=== PATIENT | male | born 1945 | race Caucasian/White ===

== ENCOUNTER 2023-04-30 08:07 | Inpatient (IN) | payer OTHER ==
[2023-04-30 08:43] LABS: HEMOGLOBIN 12.2 G/dL (11.7-16.9); MCH 30.2 pg (25.7-33.7); MCHC 34.9 g/dl (32.0-35.9); MEAN CELL VOLUME 86.7 fl (80-96); MEAN PLT VOLUME 7.8 fl (7.5-11.1); PLATELET COUNT 207.2 10^3/uL (134-434); RBC 4.04 10^6/uL (4.00-5.60); RDW 14.1 % (11.9-15.9); WHITE BLOOD COUNT 8.2 10^3/uL (4.0-10.8)
[2023-04-30 08:47] LABS: PLATELET ESTIMATE ADEQUATE
[2023-04-30 08:49] LABS: ALBUMIN 4.5 g/dl (3.4-5.0); BILIRUBIN,TOTAL 0.8 mg/dl (0.2-1); BLOOD UREA NITROGEN 20.9 mg/dl (7-18); CALCIUM 9.9 mg/dl (8.5-10.1); CREATININE 1.5 mg/dl (0.6-1.3); POTASSIUM 3.7 mmol/L (3.5-5.1); SGOT/AST 28.2 U/L (15-37); SGPT/ALT 23.2 U/L (7-52); TOT PROT 6.4 g/dl (6.4-8.2)
[2023-04-30] MEDS ORDERED: SODIUM CHLORIDE 1,000 ML IV STA (09:20)
[2023-04-30 11:49] LABS: CHOLESTEROL 120 mg/dl (50-200); HDL CHOLESTEROL 38 mg/dl (40-60)
[2023-04-30 12:16] LABS: LDL CHOLESTEROL (ONLY SJRH) 54 mg/dL (5-100)
[2023-04-30 12:51] VITALS: BMI 26.7
[2023-04-30 14:47] LABS: BLOOD UREA NITROGEN 18.5 mg/dl (7-18); CALCIUM 9.3 mg/dl (8.5-10.1); CREATININE 1.3 mg/dl (0.6-1.3); POTASSIUM 3.5 mmol/L (3.5-5.1)
[2023-04-30] MEDS ORDERED: SODIUM CHLORIDE 1,000 ML IV SCH (15:30)
[2023-04-30] MEDS: INSULIN SLIDING SCALE (NOVOLOG) 1 VIAL SQ SCH ×2 (16:57→22:32)
[2023-04-30] MEDS: HEPARIN NA (PORCINE) 5,000 UNITS/ML 1ML VIAL SQ SCH ×2 (17:10→21:14)
[2023-05-01 01:03] LABS: POTASSIUM 3.3 mmol/L (3.5-5.1)
[2023-05-01 01:06] LABS: ALBUMIN 3.6 g/dl (3.4-5.0); BLOOD UREA NITROGEN 19.3 mg/dL (7-18); MAGNESIUM 1.3 mg/dL (1.8-2.4)
[2023-05-01 01:09] LABS: CREATININE 1.4 mg/dL (0.55-1.3); PHOSPHOROUS 2.3 mg/dL (2.5-4.9)
[2023-05-01 01:10] LABS: BILIRUBIN,TOTAL 0.5 mg/dL (0.2-1)
[2023-05-01 01:11] LABS: TOT PROT 6.4 g/dl (6.4-8.2)
[2023-05-01] MEDS: INSULIN SLIDING SCALE (NOVOLOG) 1 VIAL SQ SCH ×4 (06:27→21:03)
[2023-05-01] MEDS: HEPARIN NA (PORCINE) 5,000 UNITS/ML 1ML VIAL SQ SCH ×3 (06:32→21:03)
[2023-05-01 08:23] LABS: HEMATOCRIT 33.5 % (35.4-49); HEMOGLOBIN 11.8 G/dL (11.7-16.9); MCH 30.2 pg (25.7-33.7); MCHC 35.2 g/dl (32.0-35.9); MEAN CELL VOLUME 85.8 fl (80-96); MEAN PLT VOLUME 7.4 fl (7.5-11.1); PLATELET COUNT 197.4 10^3/uL (134-434); RDW 13.9 % (11.9-15.9); WHITE BLOOD COUNT 8.3 10^3/uL (4.0-10.8)
[2023-05-01] MEDS ORDERED: FAMOTIDINE 20 MG TABLET PO PRN (08:27)
[2023-05-01] MEDS ORDERED: PATIENT'S OWN MEDICATION (NON-FORMULARY) (Tadalafil [Tadalafil] 5 MG Tablet) PO PRN (08:27)
[2023-05-01] MEDS ORDERED: MAGNESIUM SULF 50% (8.12 MEQ/2 ML-1 GM VIAL) IVPB ONE (08:29)
[2023-05-01] MEDS ORDERED: MAGNESIUM SULFATE IN WATER 2 GM/50 ML IVPB IVPB ONE (09:15)
[2023-05-01] MEDS ORDERED: NAPH,MB-DB/K PH,MBDB POWDER PACKET PO ONE (09:15)
[2023-05-01] MEDS ORDERED: POTASSIUM CHLORIDE ORAL LIQUID 20 MEQ/15 ML PO ONE (09:15)
[2023-05-01] MEDS ORDERED: SEMAGLUTIDE 14 MG PO SCH (10:00)
[2023-05-01] MEDS ORDERED: amLODIPine BESYLATE 10 MG TABLET (FP) PO SCH (10:00)
[2023-05-01] MEDS ORDERED: ACETAMINOPHEN 500 MG TABLET (FP) PO ONE (11:00)
[2023-05-01 11:25] LABS: ALBUMIN 4.1 g/dl (3.4-5.0); BILIRUBIN,TOTAL 0.8 mg/dl (0.2-1); CALCIUM 9.8 mg/dl (8.5-10.1); CREATININE 1.4 mg/dl (0.6-1.3); POTASSIUM 3.8 mmol/L (3.5-5.1); TOT PROT 5.9 g/dl (6.4-8.2)
[2023-05-01] MEDS: TAMSULOSIN HCL 0.4 MG CAP PO SCH (21:03)
[2023-05-01] MEDS: ATORVASTATIN CA 20 MG TABLET (FP) PO SCH (21:03)
[2023-05-02] MEDS: INSULIN SLIDING SCALE (NOVOLOG) 1 VIAL SQ SCH ×4 (06:39→21:14)
[2023-05-02] MEDS: HEPARIN NA (PORCINE) 5,000 UNITS/ML 1ML VIAL SQ SCH ×3 (06:39→21:11)
[2023-05-02 08:53] LABS: HEMATOCRIT 34.9 % (35.4-49); MCH 30.2 pg (25.7-33.7); MCHC 34.5 g/dl (32.0-35.9); MEAN CELL VOLUME 87.5 fl (80-96); MEAN PLT VOLUME 7.3 fl (7.5-11.1); PLATELET COUNT 202.7 10^3/uL (134-434); RBC 3.99 10^6/uL (4.00-5.60); RDW 13.5 % (11.9-15.9); WHITE BLOOD COUNT 8.2 10^3/uL (4.0-10.8)
[2023-05-02] MEDS: amLODIPine BESYLATE 10 MG TABLET (FP) PO SCH (09:17)
[2023-05-02] MEDS ORDERED: amLODIPine BESYLATE 5 MG TABLET (FP) PO SCH (10:00)
[2023-05-02 10:14] LABS: BLOOD UREA NITROGEN 19.5 mg/dl (7-18); CALCIUM 9.5 mg/dl (8.5-10.1); CREATININE 1.6 mg/dl (0.6-1.3); MAGNESIUM 1.7 mg/dL (1.8-2.4); PHOSPHOROUS 3.26 (2.5-4.9); POTASSIUM 3.4 mmol/L (3.5-5.1)
[2023-05-02] MEDS ORDERED: MAGNESIUM OXIDE 400 MG TABLET (FP) PO ONE (10:28)
[2023-05-02 10:32] LABS: PLATELET ESTIMATE ADEQUATE
[2023-05-02] MEDS ORDERED: POTASSIUM CHLORIDE TABS 10 MEQ TABLET.ER (FP) PO ONE (11:07)
[2023-05-02] MEDS ORDERED: SODIUM CHLORIDE 0.9% 500 ML INFUS.BAG IV ONE (11:29)
[2023-05-02 17:47] LABS: ALBUMIN 4.1 g/dl (3.4-5.0); BILIRUBIN,TOTAL 0.7 mg/dl (0.2-1); BLOOD UREA NITROGEN 23.1 mg/dl (7-18); CALCIUM 9.2 mg/dl (8.5-10.1); CREATININE 1.5 mg/dl (0.6-1.3); POTASSIUM 3.9 mmol/L (3.5-5.1); SGPT/ALT 22.6 U/L (7-52); TOT PROT 5.9 g/dl (6.4-8.2)
[2023-05-02] MEDS: ATORVASTATIN CA 20 MG TABLET (FP) PO SCH (21:11)
[2023-05-02] MEDS: TAMSULOSIN HCL 0.4 MG CAP PO SCH (21:11)
[2023-05-03] MEDS: HEPARIN NA (PORCINE) 5,000 UNITS/ML 1ML VIAL SQ SCH ×3 (06:23→21:08)
[2023-05-03] MEDS: INSULIN SLIDING SCALE (NOVOLOG) 1 VIAL SQ SCH ×4 (06:23→21:11)
[2023-05-03] MEDS ORDERED: SODIUM CHLORIDE 0.9% 500 ML INFUS.BAG IV ONE (08:31)
[2023-05-03] MEDS: INSULIN (LEVEMIR) 100 UNITS/ML UNITS SQ SCH ×2 (09:15→21:10)
[2023-05-03] MEDS: amLODIPine BESYLATE 10 MG TABLET (FP) PO SCH (09:16)
[2023-05-03 10:09] LABS: ALBUMIN 3.9 g/dl (3.4-5.0); BILIRUBIN,TOTAL 0.9 mg/dl (0.2-1); BLOOD UREA NITROGEN 21.9 mg/dl (7-18); CALCIUM 9.4 mg/dl (8.5-10.1); POTASSIUM 4.1 mmol/L (3.5-5.1); SGOT/AST 22.9 U/L (15-37); SGPT/ALT 23.7 U/L (7-52); TOT PROT 5.7 g/dl (6.4-8.2)
[2023-05-03 11:08] LABS: CREATININE 1.7 mg/dL (0.55-1.3)
[2023-05-03] MEDS ORDERED: SODIUM CHLORIDE 1,000 ML IV SCH (14:00)
[2023-05-03] MEDS: ATORVASTATIN CA 20 MG TABLET (FP) PO SCH (21:08)
[2023-05-03] MEDS: TAMSULOSIN HCL 0.4 MG CAP PO SCH (21:08)
[2023-05-04 06:15] VITALS: BP 131/66; PULSE 86; RESP 16; TEMP 98.3
[2023-05-04] MEDS: HEPARIN NA (PORCINE) 5,000 UNITS/ML 1ML VIAL SQ SCH (06:52)
[2023-05-04] MEDS: INSULIN (LEVEMIR) 100 UNITS/ML UNITS SQ SCH (06:53)
[2023-05-04] MEDS: INSULIN SLIDING SCALE (NOVOLOG) 1 VIAL SQ SCH ×2 (06:53→13:24)
[2023-05-04 09:23] LABS: BASO % 0.4 % (0-2.0); EOS % 1.9 % (0-4.5); HEMATOCRIT 33.6 % (35.4-49); HEMOGLOBIN 11.5 GM/dL (11.7-16.9); LYMPH % 12.3 % (8-40); MCH 29.1 pg (25.7-33.7); MCHC 34.1 g/dl (32.0-35.9); MEAN CELL VOLUME 85.3 fl (80-96); MEAN PLT VOLUME 7.8 fl (7.5-11.1); MONO % 5.2 % (3.8-10.2); NEUT % 80.2 % (42.8-82.8); PLATELET COUNT 199 10^3/uL (134-434); RBC 3.94 M/mm3 (4.00-5.60); RDW 13.2 % (11.9-15.9)
[2023-05-04 09:24] LABS: ALBUMIN 3.8 g/dl (3.4-5.0); BLOOD UREA NITROGEN 22.1 mg/dl (7-18); CALCIUM 9.3 mg/dl (8.5-10.1); CREATININE 1.4 mg/dl (0.6-1.3); POTASSIUM 4.2 mmol/L (3.5-5.1); SGOT/AST 24.1 U/L (15-37); TOT PROT 5.5 g/dl (6.4-8.2)
[2023-05-04] MEDS: amLODIPine BESYLATE 10 MG TABLET (FP) PO SCH (09:46)
== END 2023-05-04 12:16 | disposition home or self-care (01) | DRG 641 ==
LOC: FER 08:07 → FM/S 10:31
DX: E87.1 Hypo-osmolality and hyponatremia (principal); E78.5 Hyperlipidemia, unspecified; Z79.84 Long term (current) use of oral hypoglycemic drugs; E11.9 Type 2 diabetes mellitus without complications; I10 Essential (primary) hypertension; K21.9 Gastro-esophageal reflux disease without esophagitis; C61 Malignant neoplasm of prostate
CPT/HCPCS: 36415; 71046-TC-FY; 71250-TC; 76775-TC; 76856-TC; 80048; 80053; 80061; 81003; 82570; 82962; 83735; 83930; 83935; 84100; 84156; 84300; 84439; 84443; 85025; 85027; 93005; 99285-25; J1644